=== PATIENT | male | born 1975 | race Caucasian/White ===

== ENCOUNTER → 2017-01-10 | Outpatient (CLI) | payer BC ==
[~2017-01-10] MED LIST: LRT5 PO; [UNRECOGNIZED DRUG - CODE] OP
[2017-01-10 17:50] LABS: BASO % 0.5 %; BASO ABS # 0.03 K/uL (0-0.2); COMPLETE YES; EOS % 5.5 %; HEMATOCRIT 42.2 % (42-52); IG% 0.2 %; LYMPH % 36.8 %; LYMPH ABS # 2.15 K/uL (1.2-3.4); MEAN CELL VOLUME 98.6 fL (80-100); MEAN CORPUSCULAR HEMOGLOBIN 34.3 pg (25-34); MEAN CORPUSCULAR HGB CONC 34.8 g/dl (32-36); MEAN PLATELET VOLUME 11.3 fL (7.4-10.4); MONO % 6.7 %; NEUT % 50.3 %; PLATELET COUNT 214 K/uL (130-400); RED BLOOD COUNT 4.28 M/uL (4.7-6.1); WHITE BLOOD COUNT 5.85 K/uL (4.8-10.8)
[2017-01-10 17:56] LABS: BLOOD UREA NITROGEN 19 mg/dl (7-18); GLUCOSE 95 mg/dl (70-99)
[2017-01-10 17:57] LABS: ALT/SGPT 29 U/L (12-78); AMYLASE 36 U/L (25-115); BUN/CREATININE RATIO 17.5 (10-20); CALCIUM 8.8 mg/dl (8.5-10.1); CARBON DIOXIDE 27 mmol/L (21-32); CHLORIDE 110 mmol/L (98-107); POTASSIUM 4.2 mmol/L (3.5-5.1); SODIUM 142 mmol/L (136-145)
[2017-01-10 18:00] LABS: ALB/GLOB RATIO 1.3 (0.9-2); ALKALINE PHOSPHATASE 89 U/L (45-117); AST/SGOT 21 U/L (15-37)
== END | disposition home or self-care (01) ==
LOC: C.LABSPEC 17:31
PROVIDERS: ATTEND Internal Medicine
DX: R10.10 Upper abdominal pain, unspecified (principal)

== ENCOUNTER → 2017-01-13 | Outpatient (CLI) | payer BC ==
--- NOTE | 2017-01-13 09:01 | DIAGNOSTIC IMAGING REPORT ---
ULTRASOUND RIGHT UPPER QUADRANT ABDOMEN CLINICAL HISTORY: Upper abdominal pain. COMPARISON STUDY: No priors. TECHNIQUE: Real-time, grayscale, and color flow sonography of the right upper quadrant of the abdomen was performed. Images are reviewed in the transverse and longitudinal planes. FINDINGS: Liver: The liver is normal in size and echotexture. There is no intrahepatic biliary ductal dilatation. The main portal vein is patent. Gallbladder: The gallbladder is normal in appearance. No gallstones are identified. There is no gallbladder wall thickening or pericholecystic fluid. A sonographic Santiago's sign is reportedly absent. The common bile duct measures up to 0.4 cm in diameter. Pancreas: Visualized portions of the pancreatic head and body are normal in appearance. The splenic vein is patent. Right kidney: Survey images of the right kidney demonstrate normal size and echotexture. There is no hydronephrosis. Ascites: None. IMPRESSION: No acute sonographic abnormality is identified in the right upper quadrant. No gallstones are seen. Electronically signed by: Gerard De M.D. 01/13/2017 8:59 AM Dictated Date/Time: 01/13/2017 8:58 AM
== END | disposition home or self-care (01) ==
LOC: C.ULTR 08:27
PROVIDERS: ATTEND Internal Medicine
DX: R10.10 Upper abdominal pain, unspecified (principal)

== ENCOUNTER → 2017-03-03 | Outpatient (CLI) | payer BC ==
[~2017-03-03] MED LIST changes: +SINCALIDE INJ 1.9 MCG in SODIUM CHLORIDE 0.9% 100ML 100 ML IV ONE
--- NOTE | 2017-03-03 12:36 | DIAGNOSTIC IMAGING REPORT ---
HEPATOBILIARY EF IMAGING CLINICAL HISTORY: 41 years-old Male with BLOATING. Acute abdominal bloating TECHNIQUE: Following the intravenous administration of 5.7 mCi of technetium-99m Choletec, sequential abdominal images were obtained. In order to evaluate the contractile response of the gallbladder, 1.9 mcg of Kinevac was administered by slow intravenous infusion over 45 min starting approximately 60 min after the administration of the radiopharmaceutical. Sequential imaging was continued for 60 min after the start of the Kinevac infusion. COMPARISON: Right upper quadrant ultrasound 01/13/2017 FINDINGS: There is prompt, uniform accumulation of the tracer by the liver. There is normal filling of the intrahepatic ducts, common bile duct and gallbladder and normal excretion of the tracer into the duodenum. There is suboptimal contraction of the gallbladder. The calculated gallbladder ejection fraction is 17% (normal >40%). There is moderate enterogastric reflux. IMPRESSION: 1. Decreased contractile response of the gallbladder to Kinevac infusion with ejection fraction of 17%. 2. Moderate enterogastric reflux. The above report was generated using voice recognition software. It may contain grammatical, syntax or spelling errors. Electronically signed by: Sergio Rachel M.D. 03/03/2017 12:35 PM Dictated Date/Time: 03/03/2017 12:29 PM
== END | disposition home or self-care (01) ==
LOC: C.NUCL 10:17
PROVIDERS: ATTEND Internal Medicine Gastroenterology
DX: K21.9 Gastro-esophageal reflux disease without esophagitis (principal); K82.9 Disease of gallbladder, unspecified; R14.0 Abdominal distension (gaseous)

== ENCOUNTER 2017-03-25 08:05 | Day surgery (SDC) | payer BC ==
[2017-03-21 08:19] VITALS: BMI 29.0
--- NOTE | 2017-03-21 08:48 | PAT Medication Instructions ---
Service Date Mar 21, 2017. Current Home Medication List Omeprazole (Omeprazole), 2 TAB PO BID Medication Instructions For Your Scheduled Surgery - Take the following medications the morning of surgery with a sip of water: Omeprazole (Omeprazole), 2 TAB PO BID - Take the following medications as scheduled the night before surgery: Omeprazole (Omeprazole), 2 TAB PO BID If you have any questions please call us at [phone] or [phone] or [phone]
--- NOTE | 2017-03-21 09:19 | DIAGNOSTIC IMAGING REPORT ---
CHEST 2 VIEWS ROUTINE CLINICAL HISTORY: Preoperative evaluation. COMPARISON STUDY: Chest radiograph June 18, 2010. FINDINGS: Lung volumes are normal. Lungs are clear. There is no pneumothorax or pleural effusion. Pulmonary vascularity is normal. Cardiomediastinal silhouette is normal. The appearance of the chest is unchanged. IMPRESSION: No acute cardiopulmonary findings. Electronically signed by: Toney Simmons M.D. 03/21/2017 9:17 AM Dictated Date/Time: 03/21/2017 9:17 AM
[2017-03-21 10:02] LABS: BASO % 0.8 %; BASO ABS # 0.04 K/uL (0-0.2); EOS % 5.6 %; EOS ABS # 0.29 K/uL (0-0.5); HEMATOCRIT 44.8 % (42-52); HEMOGLOBIN 15.8 g/dL (14.0-18.0); IG# 0.01 K/uL (0.00-0.02); LYMPH % 36.7 %; LYMPH ABS # 1.91 K/uL (1.2-3.4); MEAN CELL VOLUME 99.3 fL (80-100); MEAN CORPUSCULAR HGB CONC 35.3 g/dl (32-36); MEAN PLATELET VOLUME 11.3 fL (7.4-10.4); MONO % 8.8 %; MONO ABS # 0.46 K/uL (0.11-0.59); NEUT % 47.9 %; NEUT ABS # 2.49 K/uL (1.4-6.5); PLATELET COUNT 190 K/uL (130-400); RED CELL DISTRIBUTION WIDTH CV 12.9 % (11.5-14.5); RED CELL DISTRIBUTION WIDTH SD 46.6 fL (36.4-46.3)
[2017-03-21 11:26] LABS: ALBUMIN 3.6 gm/dl (3.4-5.0); CALCIUM 8.8 mg/dl (8.5-10.1); CREATININE 0.98 mg/dl (0.60-1.40); POTASSIUM 4.4 mmol/L (3.5-5.1)
[2017-03-21 11:29] LABS: TOTAL PROTEIN 6.6 gm/dl (6.4-8.2)
[~2017-03-25] VITALS: Ht 182.9 cm; Wt 99.0 kg
[~2017-03-25 08:05] MED LIST changes: +LACTATED RINGER'S 1000ML 1,000 ML IV SCH; -LRT5 PO; +OMEP20TA PO; -SINCALIDE INJ 1.9 MCG in SODIUM CHLORIDE 0.9% 100ML 100 ML IV ONE; -[UNRECOGNIZED DRUG - CODE] OP
[2017-03-25 08:26] VITALS: BP 116/71; PULSE 60; TEMP 36.6; O2SAT 95; Ht 182.9 cm; Wt 99.0 kg
--- NOTE | 2017-03-25 09:45 | History & Physical Bridge Note ---
H&P Re-Evaluation Bridge Note: I have examined the patient, reviewed the History & Physical and in the interval since the performance of the History & Physical I have noted the following changes of clinical significance: No changes noted SO at bedside, all questions answered
[2017-03-25] MEDS ORDERED: LIDOCAINE/EPINEPHRINE 1% 20 ML VIAL ONE (09:46)
[2017-03-25] MEDS ORDERED: CONRAY 60% 50 ML VIAL ONE (09:46)
[2017-03-25] MEDS ORDERED: MIDAZOLAM HCL 1 MG/ML 2ML VIAL ONE (09:56)
[2017-03-25] MEDS ORDERED: FENTANYL CITRATE INJ 50 MCG/1 ML 2 ML VIAL ONE ×2 (09:56→11:09)
[2017-03-25] MEDS ORDERED: OXYC-57 PO (10:17)
--- NOTE | 2017-03-25 10:20 | Discharge Instructions ---
Discharge Instructions Date of Service Mar 25, 2017. Admission Reason for Admission: Biliary Dyskinesia Discharge Discharge Diagnosis / Problem: Biliary Dyskinesia Discharge Goals Goal(s): Decrease discomfort, Improve function Activity Recommendations Activity Limitations: as noted below Lifting Limitations: no more than 10 pounds Exercise/Sports Limitations: until after follow-up appointment May Resume Sexual Activity: after follow-up appointment Shower/Bathe: tomorrow Driving or Machine Use: resume 1 day after discharge . Instructions / Follow-Up Instructions / Follow-Up Please follow-up with Dr. Scott in the General Surgery clinic in 1-2 weeks. Please call the office at [phone] to make this follow-up appointment if you do not have one already. Please call the office with any questions or concerns. Current Hospital Diet Patient's current hospital diet: Discharge Diet Recommended Diet: Regular Diet Pending Studies Studies pending at discharge: yes List of pending studies: Pathology report. Medical Emergencies . Who to Call and When: Medical Emergencies: If at any time you feel your situation is an emergency, please call 911 immediately. . Non-Emergent Contact Non-Emergency issues call your: Primary Care Provider, Surgeon Call Non-Emergent contact if: temperature is above 101.5, your pain is not controlled, wound has increased drainage, wound has increased redness . "Provider Documentation" section prepared by Carolann Singh. . VTE Core Measure Inpt VTE Proph given/why not?: SCD's [place] Drug Monitoring Program Search Results: patient reviewed within database, no issues identified
[2017-03-25] MEDS ORDERED: ONDANSETRON INJ 2 MG/ML 2 ML VIAL IV PRN ×2 (10:45→11:15)
[2017-03-25] MEDS ORDERED: EpHEDrine SULFATE INJ 50 MG/ML AMP IV PRN (10:45)
[2017-03-25] MEDS ORDERED: ATROPINE SULFATE 0.1 MG/ML 5ML SYR IV PRN (10:45)
[2017-03-25] MEDS ORDERED: MEPERIDINE HCL 25 MG/ML CARP IV PRN (10:45)
[2017-03-25] MEDS ORDERED: LABETALOL HCL IV 5 MG/ML 20ML IV PRN (10:45)
--- NOTE | 2017-03-25 10:56 | DIAGNOSTIC IMAGING REPORT ---
CHOLANGIOGRAM O.R. HISTORY: Post cholecystectomy. FLUOROSCOPY TIME: 8 seconds. FINDINGS: Fluoroscopy was provided for an intraoperative cholangiogram status post cholecystectomy. Contrast was injected through the cystic duct remnant. Partial contrast extravasation. Flow of contrast to the small bowel is confirmed. Moderate wall irregularity and/or spasm of the distal common bile duct. Contrast extends into the small bowel. There is no intrahepatic bile duct dilatation. IMPRESSION: Fluoroscopy provided for an intraoperative cholangiogram status post cholecystectomy. No filling defects within the common bile duct. Moderate contrast extravasation. Spasm and or mucosal irregularity of the distal common bile duct. The above report was generated using voice recognition software. It may contain grammatical, syntax or spelling errors. Electronically signed by: Carmine Stubbs M.D. 03/25/2017 10:55 AM Dictated Date/Time: 03/25/2017 10:53 AM
[2017-03-25] MEDS ORDERED: LACTATED RINGER'S 1000ML 1,000 ML IV SCH (11:06)
[2017-03-25] MEDS ORDERED: KETOROLAC TROMETHAMINE 30 MG/ML VIAL ONE (11:08)
--- NOTE | 2017-03-25 11:10 | [facility] Operative Report ---
Operative Report Operative Date Mar 25, 2017. Pre-Operative Diagnosis Biliary Dyskenisia Post-Operative Diagnosis Same Procedure(s) Performed Laparoscopic Cholecystectomy with Cholangiogram Surgeon Dr Scott Machine Operator Replanter Surgeon(s) Ricardo Beck PA-C Estimated Blood Loss 5ML Findings SIGNIFICANT ADHESIONS TO GALL BLADDER Specimens A. Gallbladder Description of Procedure OR summary dictated conf #[id number] fluoro dict #[id number] I attest to the content of the Intraoperative Record and any orders documented therein. Any exceptions are noted below.
[2017-03-25] MEDS ORDERED: OXYCODONE/ACETAMINOPHEN 5-325 TAB PO PRN (11:15)
[2017-03-25] MEDS ORDERED: MoRPHine SULFATE 4 MG/ML 1 ML CARP\\VIAL IV PRN (11:15)
[2017-03-25] MEDS: FENTANYL CITRATE INJ 50 MCG/1 ML 2 ML VIAL IV PRN ×2 (11:18→11:23)
[2017-03-25] MEDS ORDERED: NEOSTIGMINE METHYLSULFATE 5 MG/5 ML SYR ONE (11:28)
[2017-03-25] MEDS ORDERED: PROPOFOL IV EMULSION 10 MG/ML 20 ML VIAL IV ONE (11:28)
[2017-03-25] MEDS ORDERED: DEXAMETHASONE SOD INJ 4 MG/ML VIAL ONE (11:28)
[2017-03-25] MEDS ORDERED: LIDOCAINE HCL 2% 2 ML VIAL (20MG/ML) ONE (11:28)
[2017-03-25] MEDS ORDERED: GLYCOPYRROLATE INJ 0.2 MG/ML VIAL ONE (11:28)
[2017-03-25] MEDS ORDERED: ROCURONIUM BROMIDE 10 MG/ML 5 ML VIAL IV ONE (11:28)
[2017-03-25] MEDS ORDERED: ONDANSETRON INJ 2 MG/ML 2 ML VIAL ONE (11:28)
--- NOTE | 2017-03-25 11:33 | OPERATIVE REPORT ---
DATE OF OPERATION: 03/25/2017 SURGEON: Dr. Scott. ASH PIT WORKER: Ricardo Beck PA-C PREOPERATIVE DIAGNOSIS: Biliary dyskinesia. POSTOPERATIVE DIAGNOSIS: Same. PROCEDURE: Laparoscopic cholecystectomy, intraoperative cholangiogram with fluoroscopy. SUMMARY: We utilized the fluoroscopic equipment to take multiple x-rays during the procedure of the common bile duct. For the other complete OR report, see the other dictation. I attest to the content of the Intraoperative Record and any orders documented therein. Any exception s are noted below.
[2017-03-25] MEDS: HYDROmorphone INJ 0.5 MG/0.5 ML SYR IV PRN ×3 (11:35→11:45)
--- NOTE | 2017-03-25 11:41 | OPERATIVE REPORT ---
DATE OF OPERATION: 03/25/2017 PREOPERATIVE DIAGNOSIS: Biliary dyskinesia. POSTOPERATIVE DIAGNOSIS: Same with significant gallbladder adhesions. PROCEDURE: Laparoscopic cholecystectomy, intraoperative cholangiogram. SURGEON: Dr. Scott. COOPERATIVE EXTENSION AGENT: Mickey Beck PA-C. OPERATION AND FINDINGS: SUMMARY: After induction of general endotracheal anesthesia, the patient's abdomen was prepped with Betadine scrubbing solution and properly draped. We made a small transverse incision above the umbilicus sufficient enough to place a Veress needle followed by 5 mm trocar. Point of entry inspected and no injury identified. Under direct visualization, we placed a 5 mm epigastric and two 5 mm subcostal ports with preemptive local analgesia 1% Xylocaine. The gallbladder was visualized and had adhesions to the fundus. These were taken down by sharp dissection and then the patient from mid portion down towards the triangle of Calot had significant adherence of what appeared to be omentum down to the gallbladder stuck. Most of these were taken down by blunt dissection. Down towards the triangle of Calot we identified the artery that was coming out more anteriorly and we doubly clipped and divided. The cystic duct was then identified, clipped proximally. Small opening in the cystic duct was made. A #4 ureteral catheter transversed the abdominal wall was positioned. We took multiple x-rays fluoroscopically to see if there was free flow into the duodenum. The duct appeared to be smaller than normal but no significant filling defects appreciated. At this point the cholangiocath was removed. The cystic duct was doubly clipped and divided. The patient had a posterior artery coursing along the liver bed that was going to the gallbladder. We took that off right at the takeoff of the gallbladder and doubly clipped and divided. Gallbladder was removed in the antegrade fashion leaving as much of posterior peritoneum intact. The gallbladder was placed in an Endopouch and taken out intact through the epigastric port. Subhepatic and suprahepatic area was then checked for hemostasis and appeared quite satisfactory. We then placed a camera in subcostal port to visualize the umbilical opening. No adhesions were identified in that area. Individual trocars removed under direct visualization and the last umbilical trocar. Wounds were closed with 4-0 Monocryl. Steri-Strips applied. The procedure was tolerated well by the patient. Estimated blood loss approximately 5 mL. The patient was taken to recovery room in good condition. I attest to the content of the Intraoperative Record and any orders documented therein. Any exception s are noted below.
[2017-03-25 12:00] VITALS: BP 137/96; PULSE 60; TEMP 36.3; O2SAT 97
[2017-03-25 12:30] VITALS: BP 133/86; PULSE 63; O2SAT 98
--- NOTE | 2017-03-25 12:41 | Anesthesiology Progress Note ---
Anesthesia Post Op Note Date & Time Mar 25, 2017 at 12:41 Vital Signs Pain Intensity: 7 Vital Signs Past 12 Hours Date Time Temp Pulse Resp B/P (MAP) Pulse Ox O2 Delivery O2 Flow Rate FiO2 03/25/17 12:00 36.3 60 18 137/96 97 Room Air 03/25/17 11:53 36.5 03/25/17 11:52 132/84 03/25/17 11:51 47 18 97 03/25/17 11:51 48 18 03/25/17 11:47 141/88 03/25/17 11:46 49 13 03/25/17 11:46 49 13 96 03/25/17 11:42 134/91 03/25/17 11:41 56 13 97 03/25/17 11:41 58 13 03/25/17 11:37 136/89 03/25/17 11:36 48 12 03/25/17 11:36 47 12 95 03/25/17 11:32 138/95 03/25/17 11:31 63 16 98 03/25/17 11:31 62 16 03/25/17 11:27 150/97 03/25/17 11:26 54 18 03/25/17 11:26 58 18 98 03/25/17 11:22 140/91 03/25/17 11:21 52 16 100 03/25/17 11:21 52 16 03/25/17 11:20 Room Air 03/25/17 11:11 36.7 53 16 157/109 99 Oxymask 7 03/25/17 08:26 36.6 60 18 116/71 (86) 95 Room Air Notes Mental Status: alert / awake / arousable, participated in evaluation Pt Amnestic to Procedure: Yes Nausea / Vomiting: adequately controlled Pain: adequately controlled Airway Patency, RR, SpO2: stable & adequate BP & HR: stable & adequate Hydration State: stable & adequate Anesthetic Complications: no major complications apparent
[2017-03-25 13:00] VITALS: BP 124/82; PULSE 50; TEMP 36.3; O2SAT 95
[2017-03-25 13:55] VITALS: BP 140/74; PULSE 57; TEMP 36.1; O2SAT 95
[2017-08-14] MEDS ORDERED: IBUP-1050 PO (13:12)
== END 2017-03-25 14:07 | disposition home or self-care (01) ==
LOC: C.ACU 08:05
PROVIDERS: ATTEND Surgery
DX: K81.1 Chronic cholecystitis (principal); K82.8 Other specified diseases of gallbladder; K21.9 Gastro-esophageal reflux disease without esophagitis; F17.200 Nicotine dependence, unspecified, uncomplicated; F17.220 Nicotine dependence, chewing tobacco, uncomplicated; Z83.3 Family history of diabetes mellitus